=== PATIENT | male | born 2000 | race Caucasian/White ===

== ENCOUNTER 2023-09-14 16:43 | Inpatient (IN) | payer SELFPAY ==
[2023-09-14] VITALS (22 sets, daily range): BP systolic 130–152; BP diastolic 78–96; PULSE 99–125; RESP 14–20; TEMP 36.5–38.2; O2SAT 97–100; BMI 27.0; BMI 32.5
[2023-09-14 16:55] LABS: Glucometer 409 mg/dL (74-106)
--- NOTE | 2023-09-14 16:55 | ECG_ITS ---
[facility] Test Date: 2023-09-14 Pat Name: NARCISA MELTON Department: Room: - Gender: Male [employer]: : 2000 Requested By: DANIEL BAJWA Order Number: [id number] Reading MD: SAUNDRA BEJARANO Measurements Intervals [place] Rate: 117 P: 53 TX: 144 QRS: 68 QRSD: 116 T: 60 QT: 338 QTc: 407 Interpretive Statements 1120 Sinus tachycardia 2320 Nonspecific intraventricular conduction delay 9140 abnormal rhythm ECG No previous ECG available for comparison Electronically Signed On 09-14-2023 22:53:18 EDT by SAUNDRA BEJARANO
--- NOTE | 2023-09-14 16:55 | XR_ITS ---
The [address] [address] Patient Name: NARCISA MELTON MRN: [id number] date: 2000 Sex: M Assigned Patient Location: ER Current Patient Location: ED.MAIN Accession/Order Number: [id number] Exam Date: 09/14/2023 17:22 Report Date: 09/14/2023 17:52 At the request of: PEDRO LUIS MARVIN Procedure: XR chest 1V EXAM: XR chest 1V HISTORY: Vomiting COMPARISON: 03/20/2012 TECHNIQUE: Single view of the chest FINDINGS: Heart size normal. No focal consolidation, pleural effusion, pulmonary congestion or pneumothorax. XR/XR chest 1V IMPRESSION: No acute findings. Electronically authenticated by: MEET EMANUEL Date: 09/14/2023 17:52
--- NOTE | 2023-09-14 16:57 | ED.NAVMDI1 ---
HPI - Nausea/Vomiting/Diarrhea General Chief complaint: Nausea/Vomiting/Diarrhea Stated complaint: Hyperglycemia Time Seen by Provider: 09/14/23 16:44 Source: patient Mode of arrival: Wheelchair History of Present Illness HPI Narrative: Patient is a 23-year-old male with a history of type 1 diabetes who presents to the emergency department for vomiting and elevated blood sugars since yesterday. He states he has never had to be hospitalized for DKA before, he has had symptoms of DKA in the past and was able to manage at home With fluids. He states he has chest discomfort and multiple episodes of vomiting since yesterday. He has had no objective fevers, abdominal pain, diarrhea, urinary symptoms. He states he is continuing to make urine. He is actively retching at my time of evaluation.No sick contacts in the home. He has an insulin pump that he believes is continuing to work. Related Data Home Medications ?Medication ?Instructions ?Recorded ?Confirmed blood-glucose transmitter (Dexcom 09/14/23 09/14/23 G6 Transmitter device) insulin aspart U-100 100 unit/mL 09/14/23 subcutaneous solution (Novolog U-100 Insulin aspart) insulin lispro 100 unit/mL 09/14/23 subcutaneous solution Allergies Allergy/AdvReac Type Severity Reaction Status Date / Time No Known Drug Allergies Allergy Verified 09/14/23 16:49 Review of Systems ROS Constitutional Denies: fever or chills Ears, nose, mouth, and throat Denies: throat pain or nasal congestion Cardiovascular Reports: chest pain Respiratory Denies: shortness of breath or cough Gastrointestinal Reports: nausea and vomiting; Denies: abdominal pain or diarrhea Genitourinary Denies: painful urination Musculoskeletal Denies: back pain or neck pain Integumentary/Breast Denies: rash Neurological Denies: headache Exam Narrative Exam Narrative: Gen.: Awake, alert, Actively vomiting Head: Normocephalic, atraumatic ENT: Moist mucous membranes Respiratory: No respiratory distress, lungs clear bilaterally Cardio: Tachycardia Gastrointestinal: Abdomen is soft, nondistended and nontender to palpation Extremities: Moves extremities equally Psych: Normal mood and affect Neuro: No focal neuro deficit Skin: Warm, dry, intact Constitutional Vital Signs, click to edit/add: Last Vital Signs Temp 98.2 F 09/14/23 16:54 Pulse 112 H 09/14/23 18:10 Resp 17 09/14/23 18:10 BP 152/96 H 09/14/23 16:50 Pulse Ox 100 09/14/23 16:50 O2 Del Method Room Air 09/14/23 16:50 Course Vital Signs Vital signs: Vital Signs Blood Pressure 152/96 H 09/14/23 16:46 Temperature 98.2 F 09/14/23 16:54 Pulse Rate 112 H 09/14/23 18:10 Respiratory Rate 17 09/14/23 18:10 Blood Pressure 152/96 H 09/14/23 16:50 Pulse Oximetry 100 09/14/23 16:50 Oxygen Delivery Method Room Air 09/14/23 16:50 MDM - Nausea/Vomiting/Diarrhea MDM Narrative Medical decision making narrative: Patient was found to have evidence of DKA, treated with IV fluids, Zofran, Pepcid. He was instructed to Turn off his insulin pump and an insulin drip was initiated in the ER at 5 units/h. I discussed this with the pharmacy to ensure the proper dosing was ordered. Patient admitted to hospitalist service for DKA to ICU. Stable at time of admission. Medical Records Attestation: I reviewed the patient's medical records. Lab Data Attestation: I reviewed the patient's lab results. Labs: Lab Results 09/14/23 09/14/23 Range/Units 16:54 17:09 WBC 14.4 H (4.0-11.0) 10^3/uL RBC 5.90 (4.70-6.10) 10^6/uL Hgb 18.4 H (14.0-18.0) g/dL Hct 54.8 H (42.0-54.0) % MCV 92.9 (80.0-94.0) fL MCH 31.2 (25.9-34.0) pg MCHC 33.6 (29.9-35.2) g/dL RDW 11.3 (11.0-15.0) % Plt Count 190 (150-450) 10^3/uL MPV 13.1 (9.5-13.5) fL Seg Neuts % (Manual) 75.0 Band Neutrophils % 3.0 (0-5) % Lymphocytes % (Manual) 15.0 L (20.5-60.0) % Monocytes % (Manual) 7.0 (1.7-12.0) % Eosinophils % (Manual) 0.0 L (0.9-7.0) % Basophils % (Manual) 0.0 L (0.2-2.0) % Neutrophils # (Manual) 10.80 H (1.4-6.5) 10^3/uL Band Neutrophils # 0.4 H (0.0-0.3) 10^3/uL Lymphocytes # (Manual) 2.16 (1.20-3.80) 10^3/uL Monocytes # (Manual) 1.00 H (0.30-0.80) 10^3/uL Eosinophils # (Manual) 0.00 (0.00-0.70) 10^3/uL Basophils # (Manual) 0.00 (0.00-0.10) 10^3/uL PT 10.1 (9.0-11.6) sec INR 0.95 VBG pH 7.088 L (7.330-7.430) VBG pCO2 22.2 L (40.0-52.0) mmHg Sodium 126 L (136-145) mmol/L Potassium 5.1 (3.5-5.1) mmol/L Chloride 90 L (98-107) mmol/L Carbon Dioxide 9.0 L (21.0-32.0) mmol/L Anion Gap 32.1 BUN 23.0 H (7.0-18.0) mg/dL Creatinine 1.60 H (0.70-1.30) mg/dL Est GFR ( Amer) >60 (>=60) Est GFR (Non-Af Amer) 53 L (>=60) BUN/Creatinine Ratio 14.4 Glucose 410 H (74-106) mg/dL Lactate 2.3 H* (0.4-2.0) mmol/L Calcium 9.7 (8.5-10.1) mg/dL Magnesium 2.0 (1.8-2.4) mg/dL Total Bilirubin 0.9 (0.2-1.0) mg/dL AST 13 L (15-37) U/L ALT 30 (16-63) U/L Alkaline Phosphatase 101 (46-116) U/L Troponin I High Sens 11.0 (4.0-76.1) pg/mL Total Protein 8.6 H (6.4-8.2) g/dL Albumin 4.3 (3.4-5.0) g/dL Globulin 4.3 g/dL Albumin/Globulin Ratio 1.0 Acetone, Qual Small A (NEGATIVE) POC Glucose 409 H (74-106) mg/dL Imaging Data Chest x-ray: Attestation: I have reviewed the pertinent imaging results. Radiologist's impression: ITS Impressions Chest X-Ray 09/14/23 16:55 IMPRESSION: No acute findings. Electronically authenticated by: MEET EMANUEL Date: 09/14/2023 17:52 ECG Data Attestation: I personally reviewed and interpreted this ECG as follows: (Sinus tachycardia at a rate of 117, no acute ST elevation or ectopy. EKG reviewed by attending physician) Discharge Plan Discharge Chief Complaint: Nausea/Vomiting/Diarrhea Patient Disposition: Admitted As Inpatient Time of Disposition Decision: 18:32 Prescriptions / Home Meds: No Action insulin aspart U-100 [Novolog U-100 Insulin aspart] 100 unit/mL solution insulin lispro 100 unit/mL solution (DME) Dexcom G6 Transmitter Device MISCELLANEOUS Print Language: Palauan Referrals: DANIEL BAJWA [Primary Care Provider] - 1 week
[2023-09-14] MEDS: FAMOTIDINE/PF 20 MG/2 ML VIAL IV (17:14)
[2023-09-14] MEDS: ONDANSETRON PF 4 MG/2 ML VIAL IV (17:14)
[2023-09-14] MEDS: 0.9 % SODIUM CHLORIDE 1,000 ML 999 ML IV (17:14)
[2023-09-14 17:20] LABS: PCO2 VBG 22.2 mmHg (40.0-52.0); pH VBG 7.088 (7.330-7.430)
[2023-09-14 17:21] LABS: Hematocrit 54.8 % (42.0-54.0); Hemoglobin 18.4 g/dL (14.0-18.0); Mean Corpuscular HGB Conc 33.6 g/dL (29.9-35.2); Mean Corpuscular Hemoglobin 31.2 pg (25.9-34.0); Mean Corpuscular Volume 92.9 fL (80.0-94.0); Mean Platelet Volume 13.1 fL (9.5-13.5); Platelet Count 190 10^3/uL (150-450); Red Cell Distribution Width 11.3 % (11.0-15.0); White Blood Count 14.4 10^3/uL (4.0-11.0)
[2023-09-14 17:37] LABS: INR 0.95; Prothrombin Time 10.1 sec (9.0-11.6)
[2023-09-14 17:42] LABS: Acetone SMALL (NEGATIVE); Alanine Aminotransferase 30 U/L (16-63); Albumin Level 4.3 g/dL (3.4-5.0); Alkaline Phosphatase 101 U/L (46-116); Anion Gap 32.1; Aspartate Amino Transferase 13 U/L (15-37); BUN Creatinine Ratio 14.4; Bilirubin Total 0.9 mg/dL (0.2-1.0); Calcium 9.7 mg/dL (8.5-10.1); Chloride 90 mmol/L (98-107); Estimated GFR (African America >60 (>=60); Estimated GFR (Non-African Ame 53 (>=60); Globulin 4.3 g/dL; Glucose 410 mg/dL (74-106); Potassium 5.1 mmol/L (3.5-5.1); Sodium 126 mmol/L (136-145); Total Protein 8.6 g/dL (6.4-8.2)
[2023-09-14 17:43] LABS: Lactate/Lactic Acid 2.3 mmol/L (0.4-2.0)
[2023-09-14 17:59] LABS: Band Neutrophils Absolute 0.4 10^3/uL (0.0-0.3); Lymphocytes Absolute Manual 2.16 10^3/uL (1.20-3.80)
[2023-09-14] MEDS: INSULIN REGULAR IN 0.9 % NACL 100 UNIT/100 ML PLAST..BAG IV (18:08)
[2023-09-14] MEDS: 0.9 % SODIUM CHLORIDE 1,000 ML 1000 ML IV (18:42)
[2023-09-14] MEDS: PROMETHAZINE HCL 25 MG/ML VIAL 12.5 MG IV (18:52)
[2023-09-14 19:06] LABS: Glucometer 355 mg/dL (74-106)
[2023-09-14 20:08] LABS: Glucometer 359 mg/dL (74-106)
[2023-09-14 20:17] LABS: Bilirubin Urine NEGATIVE (NEGATIVE); Blood Urine SMALL (NEGATIVE); Clarity Urine CLEAR (CLEAR); Color Urine LT. YELLOW (YELLOW); Glucose Urine UA >=1000 mg/dL (NEGATIVE); Ketones Urine >=80 mg/dL (NEGATIVE); Leukocyte Esterase Urine NEGATIVE (NEGATIVE); Nitrite Urine NEGATIVE (NEGATIVE); Protein Urine 30 mg/dL (NEG/TRACE); Specific Gravity Urine >=1.030 (1.005-1.025); Urobilinogen Urine 0.2 EU/dL (0.2-1.0); pH Urine 5.5 (5.0-9.0)
[2023-09-14 20:30] LABS: Urine Microscopic Indicated YES
[2023-09-14 20:33] LABS: Bacteria Urine NONE SEEN #/HPF (NONE SEEN); RBC Urine 0-2 #/HPF (0-2); WBC Urine NONE SEEN #/HPF (NONE SEEN)
[2023-09-14 20:34] LABS: Mucus Urine NONE SEEN (NONE SEEN); Squamous Epithelial Cell Urine NONE SEEN #/LPF (NONE/RARE)
[2023-09-14 20:35] LABS: Cast Seen? NONE SEEN #/LPF (NONE SEEN); Crystals Seen? None Seen #/HPF (None Seen); Urine Culture Indicated NO
[2023-09-14] MEDS: 0.9 % SODIUM CHLORIDE 1,000 ML 150 ML IV (21:10)
[2023-09-14 21:54] LABS: Glucometer 229 mg/dL (74-106)
[2023-09-14] MEDS: ACETAMINOPHEN 1,000 MG/100 ML PREMIX 400 MG IV (21:59)
[2023-09-14 23:04] LABS: Glucometer 238 mg/dL (74-106)
[2023-09-14 23:33] LABS: Anion Gap 28.2; BUN Creatinine Ratio 17.2; Calcium 8.6 mg/dL (8.5-10.1); Carbon Dioxide 9.6 mmol/L (21.0-32.0); Chloride 97 mmol/L (98-107); Estimated GFR (African America >60 (>=60); Estimated GFR (Non-African Ame >60 (>=60); Glucose 288 mg/dL (74-106); Potassium 4.8 mmol/L (3.5-5.1); Sodium 130 mmol/L (136-145)
[2023-09-14] MEDS: DEXTROSE 5 %-0.45 % SOD CHLORD 1,000 ML 150 ML IV (23:55)
[2023-09-15] VITALS (40 sets, daily range): BP systolic 118–128; BP diastolic 60–76; PULSE 92–115; RESP 12–30; TEMP 36.7; O2SAT 97–100; BMI 32.5
[2023-09-15 00:03] LABS: Glucometer 223 mg/dL (74-106)
[2023-09-15 00:57] LABS: Anion Gap 21.6; BUN Creatinine Ratio 16.2; Calcium 8.2 mg/dL (8.5-10.1); Carbon Dioxide 13.4 mmol/L (21.0-32.0); Chloride 98 mmol/L (98-107); Estimated GFR (African America >60 (>=60); Estimated GFR (Non-African Ame >60 (>=60); Glucose 249 mg/dL (74-106); Sodium 128 mmol/L (136-145)
[2023-09-15 01:00] LABS: Glucometer 244 mg/dL (74-106)
[2023-09-15 01:05] LABS: Lactate/Lactic Acid 0.9 mmol/L (0.4-2.0)
[2023-09-15 02:03] LABS: Glucometer 248 mg/dL (74-106)
[2023-09-15 03:06] LABS: Glucometer 288 mg/dL (74-106)
[2023-09-15 03:59] LABS: Glucometer 272 mg/dL (74-106)
[2023-09-15 05:07] LABS: Glucometer 291 mg/dL (74-106)
[2023-09-15 05:22] LABS: Anion Gap 19.4; BUN Creatinine Ratio 14.4; Calcium 8.2 mg/dL (8.5-10.1); Carbon Dioxide 14.8 mmol/L (21.0-32.0); Chloride 98 mmol/L (98-107); Estimated GFR (African America >60 (>=60); Estimated GFR (Non-African Ame >60 (>=60); Glucose 286 mg/dL (74-106); Potassium 4.2 mmol/L (3.5-5.1); Sodium 128 mmol/L (136-145)
[2023-09-15] MEDS: ACETAMINOPHEN 1,000 MG/100 ML PREMIX 400 MG IV (05:30)
[2023-09-15] MEDS: DEXTROSE 5 %-0.45 % SOD CHLORD 1,000 ML 150 ML IV ×2 (05:48→12:26)
[2023-09-15 06:20] LABS: Glucometer 240 mg/dL (74-106)
[2023-09-15 07:24] LABS: Glucometer 240 mg/dL (74-106)
[2023-09-15 08:12] LABS: Glucometer 239 mg/dL (74-106)
[2023-09-15 08:44] LABS: Anion Gap 17.9; Calcium 8.3 mg/dL (8.5-10.1); Chloride 100 mmol/L (98-107); Estimated GFR (African America >60 (>=60); Estimated GFR (Non-African Ame >60 (>=60); Glucose 250 mg/dL (74-106); Potassium 3.9 mmol/L (3.5-5.1); Sodium 131 mmol/L (136-145)
--- NOTE | 2023-09-15 09:19 | PC.NURSE ---
dr be updated on blood sugars and insulin drip rate. no new orders received.
--- NOTE | 2023-09-15 10:27 | P.HP_ITS ---
HPI H&P: HPI History of Present Illness Chief complaint: SUGAR HIGH, DKA Narrative: 23 y/o male with a history of DM1 on an insulin pump presents to ER with nausea and vomiting. Symptoms started day prior. Severe nausea and emesis. Not able to keep down liquids. BS started to elevate and feels like insulin pump working properly. To ER and WBC elevated. Glucose 410 and anion gap elevated at 27. Started IV fluids and insulin drip and admitted. Feels better this am. No further symptoms or nausea. Still reports decreased appetite. On IV fluids with D5 and glucose stable around 250. Anion gap improved this am. Opioid HPI Opioid Management Most Recent Opioid Data: Last Pain Assessment 09/15/23 10:00 Last AUG Pain Assessment 09/15/23 06:49 Last ORT Total Score 0 09/14/23 20:53 Last ORT Risk Category Low Risk 09/14/23 20:53 Review of Systems ROS Constitutional Denies: fever, chills or fatigue Cardiovascular Denies: chest pain, palpitations or edema Respiratory Denies: shortness of breath, cough or wheezing Gastrointestinal Reports: nausea and vomiting; Denies: abdominal pain or diarrhea Genitourinary Denies: painful urination [facility] Medical History (Updated 09/15/23 @ 08:39 by Charles Kuhn MD) Type 1 diabetes mellitus with hyperglycemia ?E10.65 - Type 1 diabetes mellitus with hyperglycemia (ICD-10) Social History Highest level of school completed/degree received: some college, no degree Do you think of yourself as: decline to answer Gender Identity: decline to answer Meds Home Medications and Allergies Home Medications ?Medication ?Instructions ?Recorded ?Confirmed ?Type blood-glucose transmitter (Dexcom 09/14/23 09/14/23 History G6 Transmitter device) insulin lispro 100 unit/mL 1 - 90 unit continuous 09/14/23 09/14/23 History subcutaneous solution subcutaneous infusion Q24H Allergies Allergy/AdvReac Type Severity Reaction Status Date / Time No Known Drug Allergies Allergy Verified 09/14/23 16:49 Exam Constitutional Vital Signs, click to edit/add: Last Vital Signs Temp 98.0 F 09/15/23 02:43 Pulse 100 H 09/15/23 10:00 Resp 13 09/15/23 07:40 BP 119/60 09/15/23 07:21 Pulse Ox 98 09/15/23 05:00 O2 Del Method Room Air 09/15/23 07:00 Documenting provider has reviewed patient's vital signs: yes Common normals: no apparent distress, oriented x3 and alert HENMT Common normals: normocephalic Eye Common normals: PERRL and EOMs intact bilaterally Respiratory Common normals: normal respiratory effort and clear to auscultation bilaterally Cardio Common normals: regular rate, regular rhythm, no gallops, no murmurs and no rub GI Common normals: Normal to inspection, nondistended, normoactive bowel sounds present and non-tender Extremity Common normals: no pedal edema Results Labs Labs: Short CBC 09/14/23 Range/Units 17:09 WBC 14.4 H (4.0-11.0) 10^3/uL Hgb 18.4 H (14.0-18.0) g/dL Hct 54.8 H (42.0-54.0) % Plt Count 190 (150-450) 10^3/uL BMP 09/14/23 09/14/23 09/15/23 17:09 20:34 00:36 Sodium 126 L 130 L 128 L Potassium 5.1 4.8 5.0 Chloride 90 L 97 L 98 Carbon Dioxide 9.0 L 9.6 L 13.4 L BUN 23.0 H 23.0 H 21.0 H Creatinine 1.60 H 1.34 H 1.30 Glucose 410 H 288 H 249 H Calcium 9.7 8.6 8.2 L 09/15/23 09/15/23 03:57 08:11 Sodium 128 L 131 L Potassium 4.2 3.9 Chloride 98 100 Carbon Dioxide 14.8 L 17.0 L BUN 18.0 16.0 Creatinine 1.25 1.23 Glucose 286 H 250 H Calcium 8.2 L 8.3 L Liver Function 09/14/23 Range/Units 17:09 Total Bilirubin 0.9 (0.2-1.0) mg/dL AST 13 L (15-37) U/L ALT 30 (16-63) U/L Alkaline Phosphatase 101 (46-116) U/L Albumin 4.3 (3.4-5.0) g/dL Urine 09/14/23 Range/Units 20:00 Urine Color Lt. yellow (YELLOW) Urine Clarity Clear (CLEAR) Urine pH 5.5 (5.0-9.0) Ur Specific [place] >=1.030 A (1.005-1.025) Urine Protein 30 A (NEG/TRACE) mg/dL Urine Glucose (UA) >=1000 A (NEGATIVE) mg/dL ABG ABG results: 09/14/23 17:09 VBG pH 7.088 L VBG pCO2 22.2 L Assessment and Plan Assessment and Plan (1) Type 1 diabetes mellitus with ketoacidosis: (2) Nausea & vomiting: Plan Presented with DKA and improved with IV fluids and insulin. Anion gap improved and will need to continue insulin drip until normal. Glucose improved and monitor. Advance diet as tolerated and monitor glucose. If labs continue to improve and glucose stable will resume insulin pump and stop fluids. Likely home later today.
--- NOTE | 2023-09-15 11:17 | SWNOTE1 ---
SW spoke to case management and they did reach out to patient financial services in regards to pt being self pay.
--- NOTE | 2023-09-15 11:30 | CM.NOTE ---
Spoke to patient about self pay status and if he has the diabetic supplies he needs. He states he has all he needs and will have health insurance as of September 26. He said he did complete a HCAP form when admitted. Financial counselors were notified by typewriter repairer of self pay status. Repeat labs to be completed and if stable and improved will possibly discharge later today. No home needs noted.
[2023-09-15 13:50] LABS: Anion Gap 16.9; BUN Creatinine Ratio 10.4; Calcium 8.4 mg/dL (8.5-10.1); Carbon Dioxide 18.9 mmol/L (21.0-32.0); Chloride 100 mmol/L (98-107); Estimated GFR (African America >60 (>=60); Estimated GFR (Non-African Ame >60 (>=60); Glucose 274 mg/dL (74-106); Potassium 3.8 mmol/L (3.5-5.1); Sodium 132 mmol/L (136-145)
--- NOTE | 2023-09-15 15:19 | PC.NURSE ---
message left at dr hoover's office for pt follow up. phone number provided to pt.
--- NOTE | 2023-09-15 16:45 | PC.NURSE ---
ambulated to exit, gait steady. discharged to private vehicle
--- NOTE | 2023-09-16 14:28 | CM.DCFOLLOWU ---
1st attempt discharge follow up call, no answer 09/16/23
--- NOTE | 2023-09-17 10:19 | CM.DCFOLLOWU ---
2nd attempt discharge follow up call, no answer 09/17/23
--- NOTE | 2023-09-20 16:17 | CM.DCFOLLOWU ---
Person spoke with: patient How are you feeling? good How is your pain? no pain Did you understand your discharge instructions? yes Do you have any questions about your discharge instructions? no Were you given any prescriptions at discharge? no Were you able to get your prescriptions filled? N/A Do you understand how to take your medications as ordered? yes Do you have any questions about your follow up appointment and do you plan to keep your follow up appointment? no questions, going to call his PCP today or tomorrow to schedule follow up Is there anything else that you would like to discuss? no Questions/Comments/Concerns/Other: N/A
== END 2023-09-15 16:40 | disposition home or self-care (01) | DRG 639 ==
LOC: ER 18:32 → ICU 19:59
PROVIDERS: Physician Assistant; Registered Nurse; Admitting Provider Family Medicine; Emergency Provider Emergency Medicine; PCP Family Medicine; Visit Provider Family Medicine
DX: E10.10 Type 1 diabetes mellitus with ketoacidosis without coma (principal); Z79.4 Long term (current) use of insulin; Z96.41 Presence of insulin pump (external) (internal); R11.2 Nausea with vomiting, unspecified
CPT/HCPCS: 36415; 36416; 71045; 80048; 80053; 81001; 82009; 82800; 82948; 83605; 83735; 83880; 84484; 85007; 85027; 85610; 87040; 93005; 96361; 96365; 96366; 96375; 99285